=== PATIENT | female | born 1950 | race Two or more races ===

== ENCOUNTER 2020-08-02 09:21 | Emergency (ER) | payer OTHER, MEDICARE ==
--- NOTE | 2020-08-02 10:17 | ER Document Report ---
ED Medical Screen (RME) - General Chief Complaint: Drainage from Ear Stated Complaint: RIGHT EAR PAIN,DRAINAGE Time Seen by Provider: 08/02/20 10:08 Mode of Arrival: Ambulatory Information source: Patient Notes: 69-year-old female presented to ED for complaint of pain to the right ear. She states 2 days ago she started having drainage and was pain all the time and then about a day or so ago she started having swelling behind her ear in front of her ear. She also has redness around her ear. She did have surgery on the same ear about 2 and half months ago found to close the hole in the tympanic membrane and were quite ear canal. She states the pain is such that now she needs to come in to find what is going on. I have ordered blood work and a saline lock as she will most likely need a CT IV contrast to find out what is going on. Patient is alert oriented respirations regular nonlabored speaking in full sentences. I have greeted and performed a rapid initial assessment of this patient. A comprehensive ED assessment and evaluation of the patient, analysis of test results and completion of medical decision making process will be conducted by an additional ED providers. Past Medical History - Social History Chew tobacco use (# tins/day): No Frequency of alcohol use: None Drug Abuse: None Pulmonary Medical History: Reports: Hx Pneumonia Past Surgical History: Reports: Hx Breast Surgery, Hx Orthopedic Surgery Physical Exam - Vital signs Vitals: Temp Pulse Resp BP Pulse Ox 97.5 F 75 18 144/63 H 99 08/02/20 09:27 08/02/20 09:27 08/02/20 09:27 08/02/20 09:27 08/02/20 09:27 Course - Vital Signs Vital signs: Temp Pulse Resp BP Pulse Ox 97.5 F 75 18 144/63 H 99 08/02/20 09:27 08/02/20 09:27 08/02/20 09:27 08/02/20 09:27 08/02/20 09:27
[2020-08-02] MEDS ORDERED: CEFTRIAXONE INJ 1000 MG VIAL IV ONE (11:15)
[2020-08-02] MEDS ORDERED: DEXAMETHASONE SOD PHOS INJ 10 MG/1 ML VIAL IV ONE (11:16)
--- NOTE | 2020-08-02 11:21 | ER Document Report ---
ED ENT - General Chief Complaint: Drainage from Ear Stated Complaint: RIGHT EAR PAIN,DRAINAGE Time Seen by Provider: 08/02/20 10:08 Mode of Arrival: Ambulatory Information source: Patient Notes: This 69-year-old woman presents to the emergency department with right ear swelling and drainage. She states that the symptoms began about 3 days ago. She complains of itching and swelling of the right ear, she awoke today and had drainage from the ear canal with some intermittent pain. Because of these symptoms she came to the emergency department for further evaluation and treatment. She had a tympanoplasty procedure performed approximately 2-1/2 months ago. She has had follow-up with ENT and is not scheduled to see them until mid August. He denies fever, nausea vomiting or other systemic symptoms. Past Medical History - General Information source: Patient - Social History Smoking Status: Current Every Day Smoker Chew tobacco use (# tins/day): No Frequency of alcohol use: None Drug Abuse: None Family History: Reviewed & Not Pertinent Pulmonary Medical History: Reports: Hx Pneumonia Past Surgical History: Reports: Hx Breast Surgery, Hx Orthopedic Surgery Review of Systems - Review of Systems Notes: Constitutional: Negative for fever. HENT: See HPI Eyes: Negative for visual changes. Cardiovascular: Negative for chest pain. Respiratory: Negative for shortness of breath. Gastrointestinal: Negative for abdominal pain, vomiting or diarrhea. Genitourinary: Negative for dysuria. Musculoskeletal: Negative for back pain. Skin: Negative for rash. Neurological: Negative for headaches, weakness or numbness. 10 point ROS negative except as marked above and in HPI. Physical Exam - Vital signs Vitals: Temp Pulse Resp BP Pulse Ox 97.5 F 75 18 144/63 H 99 08/02/20 09:27 08/02/20 09:27 08/02/20 09:27 08/02/20 09:27 08/02/20 09:27 - Notes Notes: PHYSICAL EXAMINATION: Physical Exam: General: Well-nourished well-developed in no acute distress HEENT: NC/AT, pupils equal round and reactive to light, MM moist,nares clear, oropharynx clear, airway patent right outer ear with erythema and swelling on the external auditory canal and the pinna with raised skin and swelling. No purulent drainage noted. Neck: supple, no adenopathy, no masses. Good range of motion Lungs: clear, no wheezing, no rales no rhonchi CVS: Regular rate and rhythm no murmur gallop or rub Abdomen: Soft, active, nontender, no masses, no hepatosplenomegaly Ext: No edema, clubbing or cyanosis. Neuro: Alert and responsive, moving all 4 extremities on command, cranial nerves intact, no focal findings Skin: Intact no open lesions, no rash Course - Re-evaluation Re-evalutation: 08/02/20 15:06 Patient was given Rocephin 1 g and Decadron 10 mg IV, a CT scan was obtained whi ch reveals inflammatory changes of the external auditory canal and the external ear. There is no abscess noted. - Vital Signs Vital signs: Temp Pulse Resp BP Pulse Ox 97.3 F 69 16 137/66 H 99 08/02/20 15:24 08/02/20 15:24 08/02/20 15:24 08/02/20 15:24 08/02/20 15:24 - Laboratory Result Diagrams: 08/02/20 11:20 08/02/20 11:20 Laboratory results interpreted by me: 08/02/20 11:20 AST 40 H - Diagnostic Test Radiology reviewed: Image reviewed, Reports reviewed Radiology results interpreted by me: 08/02/20 15:07 CT head: Amatory changes and swelling noted of the external ear and pinna. No abscess. Discharge - Discharge Clinical Impression: Infection of right external ear Condition: Good Disposition: HOME, SELF-CARE Instructions: Cellulitis ([facility]) Additional Instructions: You are seen in the emergency department today with a area of swelling and drainage noted to the right ear. Please take your medications as prescribed, cefdinir, prednisone you may apply warm compress to the area of swelling and pain. Please follow-up with your doctor for recheck in the next 2 to 3 days. If your symptoms are worsening or if you have other concerns you may return to the emergency department for recheck. HOME CARE INSTRUCTIONS & INFORMATION: Thank you for choosing us for your medical needs. We hope you're satisfied with the care you received. After you leave, you must properly care for your problem and, at the same time, observe its progress. Any condition can change. Some illnesses can change rapidly over hours or days. If your condition worsens, return to the Emergency Department or see your physician promptly. ABOUT YOUR X-RAYS AND EKG'S: If you had an EKG or X-rays taken, they have been read by the Emergency Physician. The X-rays and EKG's will also be read by a Radiologist or [place] Machinist within 24 hours. If discrepancies are noted, you will be notified by telephone. Please be certain the ED has a correct telephone number & address where you can be reached. Also, realize that some fractures or abnormalities do not show up on initial X-rays. If your symptoms continue, see your physician. ABOUT YOUR LABORATORY TEST: If you had laboratory tests, the results have been reviewed by the Emergency Physician. Some test results (for example cultures) may not be available for several days. You will be contacted if any test result shows you need additional treatment. Please be certain the ED has a correct telephone number and address where you can be reached. ABOUT YOUR MEDICATIONS: You will receive instructions on how to take your medicine on the prescription label you receive. Additional information may be provided by the Pharmacy. If you have questions afterwards, call the ED for clarification or further instructions. Some prescribed medications may cause drowsiness. Do not perform tasks such as driving a car or operating machinery without consulting your Pharmacist. If you feel you need a refill of pain medication, your condition will need re-evaluation. Please do not call for a refill of any medication. ABOUT YOUR SIGNATURE: Signature of this document acknowledges to followin. Understanding that you received emergency treatment and that you may be released before al medical problems are known or treated. Please be certain the ED has a correct phone number & address where you can be reached. 2. Acknowledgement that you will arrange for follow-up care as recommended. 3. Authorization for the Emergency Physician to provide information to your follow-up Physician in order to maximize your care. AT ANY TIME, IF YOUR SYMPTOMS CHANGE SIGNIFICANTLY OR WORSEN OR YOU DEVELOP NEW SYMPTOMS, RETURN TO THE EMERGENCY DEPARTMENT IMMEDIATELY FOR RE-EVALUATION. OUR GOAL IS TO PROVIDE EXCELLENT MEDICAL CARE! WE HOPE THAT WE HAVE MET YOUR EXPECTATIONS DURING YOUR EMERGENCY DEPARTMENT VISIT AND THAT YOU FEEL YOU HAVE RECEIVED EXCELLENT CARE! Prescriptions: Cefdinir 300 mg PO BID #20 capsule Prednisone [Deltasone 20 mg Tablet] 1 tab PO BID 5 Days #10 tablet
[2020-08-02] MEDS ORDERED: CEFTRIAXONE 1 GM/D5W RTU 1 GM/50 ML RTUPB IV ONE (11:25)
[2020-08-02 11:42] LABS: ABSOLUTE EOSINOPHILS # (AUTO) 0.1 10^3/uL (0.0-0.6); ABSOLUTE MONOCYTES (AUTO) 0.3 10^3/uL (0.1-1.4); ABSOLUTE NEUT (AUTO) 5.4 10^3/uL (1.7-8.2); BASOPHILS % (AUTO) 0.6 % (0-2); HEMATOCRIT 37.1 % (36.0-47.0); HEMOGLOBIN 12.8 g/dL (12.0-15.5); LYMPHOCYTES % (AUTO) 25.7 % (13-45); MEAN CORPUSCULAR HEMOGLOBIN 31.8 pg (27.0-33.4); MEAN CORPUSCULAR HGB CONC 34.5 g/dL (32.0-36.0); MEAN CORPUSCULAR VOLUME 92 fl (80-97); MONOCYTES % (AUTO) 3.7 % (3-13); PLATELET COUNT 251 10^3/uL (150-450); RED BLOOD COUNT 4.02 10^6/uL (3.72-5.28); RED CELL DISTRIBUTION WIDTH 13.3 % (11.5-14.0); TOTAL CELLS COUNTED % (AUTO) 100 %; WHITE BLOOD COUNT 7.8 10^3/uL (4.0-10.5)
[2020-08-02 12:02] LABS: ALBUMIN 4.8 g/dL (3.5-5.0); ALKALINE PHOSPHATASE 72 U/L (38-126); ANION GAP 11 (5-19); ASPARTATE AMINO TRANSFERASE 40 U/L (14-36); BILIRUBIN,DIRECT 0.4 mg/dL (0.0-0.4); BILIRUBIN,TOTAL 0.9 mg/dL (0.2-1.3); BLOOD UREA NITROGEN 19 mg/dL (7-20); CALCIUM 10.1 mg/dL (8.4-10.2); CARBON DIOXIDE 24 mmol/L (22-30); CHLORIDE 105 mmol/L (98-107); GLUCOSE 95 mg/dL (75-110); POTASSIUM 4.3 mmol/L (3.6-5.0); TOTAL PROTEIN 7.7 g/dL (6.3-8.2)
--- NOTE | 2020-08-02 14:09 | RADIOLOGY REPORT (SQ) ---
EXAM DESCRIPTION: CT HEAD COMBO IMAGES COMPLETED DATE/TIME: 08/02/2020 1:36 pm REASON FOR STUDY: rt ear surgery/drainage COMPARISON: None. TECHNIQUE: Axial images acquired through the brain without and with intravenous contrast. Images re viewed with bone, brain and subdural windows. Additional sagittal and coronal reconstructions were g enerated. Images stored on PACS. All CT scanners at this facility use dose modulation, iterative reconstruction, and/or weight based d osing when appropriate to reduce radiation dose to as low as reasonably achievable (ALARA). [facility]: Dose Right [facility]: CareDose [facility]: Dose Right [facility]: Teradose 4D [facility]: Miyaobabei CONTRAST TYPE AND DOSE: contrast/concentration: Isovue mmol/ml; Total Contrast Delivered: 49.0 ml; Total Saline Delivered: 30.8 ml RENAL FUNCTION: Creatinine 0.7 RADIATION DOSE: CT Rad equipment meets quality standard of care and radiation dose reduction techniq ues were employed. CTDIvol: 53.2 mGy. DLP: 1875 mGy-cm.. LIMITATIONS: None. FINDINGS: There is a small amount of debris in the medial aspect of the right external auditory kristine l, mild right tympanic membrane thickening, and trace fluid in the right middle ear cavity. No aggre ssive bony erosions. Ossicles grossly normal. Mild soft tissue swelling along the right external auditory canal and pre and postauricular soft tiss ues without soft tissue abscess. VENTRICLES: Normal size and contour. CEREBRUM: No masses. No hemorrhage. No midline shift. Normal james/white matter differentiation. No ev idence for acute infarction. No enhancing lesions. CEREBELLUM: No masses. No hemorrhage. No alteration of density. No evidence for acute infarction. No enhancing lesions. EXTRA-AXIAL SPACES: No fluid collections. No enhancing lesions. ORBITS AND GLOBE: No intra- or extraconal masses. Normal contour of globe without masses. CALVARIUM: No fracture. PARANASAL SINUSES: No fluid or mucosal thickening. SOFT TISSUES: As above, first paragraph OTHER: No other significant finding. IMPRESSION: Inflammatory changes right external auditory canal, tympanic membrane, middle ear cavity . No soft tissue abscess identified. No acute intracranial changes EVIDENCE OF ACUTE STROKE: NO. TECHNICAL DOCUMENTATION: JOB ID: [id number] Quality ID # [id number]: Final reports with documentation of one or more dose reduction techniques (e.g., Au tomated exposure control, adjustment of the mA and/or kV according to patient size, use of iterative reconstruction technique) 2010 [employer]- All Rights Reserved Reading location - IP/workstation name: [email or web address]
[2020-08-02 15:25] VITALS: BP 137/66
== END 2020-08-02 15:24 | disposition home or self-care (01) ==
LOC: ER 09:21
DX: H60.391 Other infective otitis externa, right ear (principal); H93.8X1 Other specified disorders of right ear; H92.11 Otorrhea, right ear; H92.01 Otalgia, right ear; F17.200 Nicotine dependence, unspecified, uncomplicated
CPT/HCPCS: 99285; 96375; 96365; 36415; 85025; 80053; 70470; J0696; J1100